=== PATIENT | male | born 1940 | race Caucasian/White ===

== ENCOUNTER → 2022-04-14 | Outpatient (CLI) | payer MEDICARE, BC ==
[2022-04-14 13:29] LABS: HEMATOCRIT 39.4 % (42.0-52.0)
== END ==
LOC: LAB 13:11
PROVIDERS: Internal Medicine Medical Oncology
DX: E83.118 Other hemochromatosis (principal)

== ENCOUNTER → 2022-05-17 | Outpatient (CLI) | payer MEDICARE, BC ==
[2022-05-17 13:41] LABS: HEMOGLOBIN 13.7 g/dL (13.5-18.0)
== END ==
LOC: LAB 13:30
PROVIDERS: Internal Medicine Medical Oncology
DX: E83.118 Other hemochromatosis (principal)

== ENCOUNTER → 2022-07-06 | Outpatient (CLI) | payer MEDICARE, BC ==
[2022-07-06 14:48] LABS: HEMATOCRIT 40.6 % (42.0-52.0); HEMOGLOBIN 14.4 g/dL (13.5-18.0)
== END ==
LOC: LAB 14:34
PROVIDERS: Internal Medicine Medical Oncology
DX: E83.118 Other hemochromatosis (principal)

== ENCOUNTER → 2022-09-24 | Outpatient (CLI) | payer MEDICARE, BC ==
[2022-09-24 14:45] LABS: HEMATOCRIT 42.8 % (42.0-52.0); HEMOGLOBIN 15.1 g/dL (13.5-18.0)
== END ==
LOC: LAB 14:34
PROVIDERS: Internal Medicine Medical Oncology
DX: E83.118 Other hemochromatosis (principal)